=== PATIENT | female | born 1960 | race Caucasian/White ===

== ENCOUNTER 2018-05-27 06:00 | Day surgery (SDC) | payer BC ==
[~2018-05-27 06:00] MED LIST: ACETAZOLAMIDE 250 MG PO ONE
[2018-05-27] MEDS: PROPARACAINE HCL 0.5% OPHTHALMIC SOL ONE ×3 (06:14→07:29)
[2018-05-27] MEDS: CYCLOPENTOLATE 1% SOL ONE ×2 (06:15→06:28)
[2018-05-27] MEDS: PHENYLEPHRINE HCL 10% OPHTHAL SOL ONE ×2 (06:15→06:28)
[2018-05-27] MEDS: KETOROLAC 0.5% OPTH 60 DROP SOL ONE ×2 (06:16→06:28)
[2018-05-27 06:20] VITALS: O2SAT 95
[2018-05-27] MEDS ORDERED: POVIDONE IODINE 5% SOL ONE (06:55)
[2018-05-27] MEDS ORDERED: BSS 500 ML 500 ML IR ONE (06:56)
[2018-05-27] MEDS ORDERED: LIDOCAINE HCL 1% MPF 30 SOL ONE (06:56)
[2018-05-27] MEDS ORDERED: MIDAZOLAM 2 MG/2 ML SOL ONE (07:00)
[2018-05-27] MEDS ORDERED: FENTANYL 100MCG/2ML SOL ONE (07:00)
[2018-05-27 08:05] VITALS: BP 159/85; PULSE 65; RESP 20; TEMP 97.6
== END 2018-05-27 08:20 | disposition home or self-care (01) ==
LOC: SURG 06:00
PROVIDERS: ATTEND Ophthalmology
DX: H25.9 Unspecified age-related cataract (principal)
CPT/HCPCS: J2250; J3010; A9270-GY; J2001